=== PATIENT | female | born 1970 | race Caucasian/White ===

== ENCOUNTER 2021-12-25 13:05 | Outpatient (CLI) | payer BC, SELFPAY ==
--- NOTE | ~2021-12-25 | US_ITS ---
EXAMINATION: US venous doppler [facility] DATE: 12/25/2021 14:41 INDICATION: Factor V deficiency. M 79.89-other specified soft tissue disorders. TECHNIQUE: Grayscale images without and with compression and Doppler images of the bilateral lower ex tremity veins were obtained. COMPARISON: None. FINDINGS: The right common femoral vein, profunda (deep) femoral vein, femoral vein, popliteal vein, peroneal v ein, posterior tibial veins, gastrocnemius vein and greater saphenous vein are patent. The left common femoral vein, profunda (deep) femoral vein, femoral vein, popliteal vein, peroneal ve in, posterior tibial veins, gastrocnemius vein and greater saphenous vein are patent. IMPRESSION: 1. Patent bilateral lower extremity veins. No evidence of deep venous thrombosis. Reviewed, dictated and finalized at location K. IMPRESSION: 1. Patent bilateral lower extremity veins. No evidence of deep venous thrombos is.
== END 2021-12-25 13:06 | disposition home or self-care (01) ==
LOC: ANHIMG 13:06
PROVIDERS: PCP Family Medicine; Visit Provider Family Medicine
DX: M79.89 Other specified soft tissue disorders (principal)
CPT/HCPCS: 93970

== ENCOUNTER 2023-03-31 13:42 | Emergency (ER) | payer BC, SELFPAY ==
--- NOTE | ~2023-03-31 | CT_ITS ---
EXAMINATION: CT brain wo con DATE: 03/31/2023 15:31 INDICATION: left sided numbness . TECHNIQUE: Computed tomography (CT) of the head was performed without intravenous contrast. The mA wa s adjusted according to patient size. Iterative reconstruction technique was employed. The dose-lengt h product was 605.33 mGy-cm. COMPARISON: None. FINDINGS: No acute intracranial hemorrhage or extra-axial fluid collection. No hydrocephalus, mass, or herniation. No acute ischemic infarct. Unremarkable dural venous sinus attenuation. No acute osseous abnormality. The aerated spaces are clear. Mild intracranial atherosclerotic calcifications. IMPRESSION: No acute intracranial process. Reviewed, dictated and finalized at location K.
--- NOTE | ~2023-03-31 | XR_ITS ---
EXAMINATION: XR chest 2V Exam Date/Time: 03/31/2023 15:20 CDT HISTORY: SUDDEN left sided numbness FROM NECK TO LEFT FOOT Comparison: None. RESULT: Lines, tubes, and devices: None. Lungs and pleura: Clear. Cardiomediastinal silhouette: Unremarkable. Other: No acute osseous or upper abdominal finding. IMPRESSION: No acute cardiopulmonary process. Reviewed, dictated and finalized at location K.
[2023-03-31 13:44] VITALS: BP 152/88; PULSE 85; RESP 18; TEMP 36.4; O2SAT 99
--- NOTE | 2023-03-31 14:47 | PC.NURSE ---
Dr. Vincent at bedside to assess pt.
--- NOTE | 2023-03-31 14:56 | ECG_ITS ---
Measurements Intervals [place] Rate: 63 P: -38 ID: [id number] QRS: 56 QRSD: 81 T: 45 QT: 403 QTc: 413 Interpretive Statements SINUS RHYTHM NORMAL ELECTROCARDIOGRAM NO PREVIOUS ECG AVAILABLE FOR COMPARISON Electronically Signed On 03-31-2023 17:19:42 CDT by Jose Luis Sotelo M.D.
[2023-03-31 15:31] LABS: Basophils Percent Auto 0.3 % (0.2-1.2); Eosinophils Absolute Auto 0.1 K/mm3 (0-0.3); Eosinophils Percent Auto 1.2 % (0-4.4); Hematocrit 46.9 % (37.0-47.0); Hemoglobin 15.5 g/dL (12.0-15.0); Immature Granulocyte Absolute 0.04 K/mm3 (0.00-0.031); Immature Granulocyte Percent A 0.4 % (0-0.5); Lymphocytes Absolute Auto 3.07 K/mm3 (0.9-3.2); Lymphocytes Percent Auto 29.6 % (18.3-44.2); Mean Corpuscular Hemoglobin 33.5 pg (26-34); Mean Corpuscular Volume 101.3 fl (80-100); Mean Platelet Volume 9.5 fl (7.4-10.4); Monocytes Absolute Auto 0.6 K/mm3 (0.1-0.6); Monocytes Percent Auto 6.2 % (2.6-8.5); Neutrophils Absolute Auto 6.5 K/mm3 (1.3-6.7); Neutrophils Percent Auto 62.3 % (45.5-73.1); Platelet Count Result 298 k/mm3 (150-375); Red Blood Count 4.63 M/mm3 (4.2-5.4); Red Cell Distribution Width 12.1 % (11.5-14.5); White Blood Count 10.4 K/mm3 (4.5-10.0)
--- NOTE | 2023-03-31 16:39 | ED.NEUROSD ---
HPI - Neuro Symptoms/Deficit General Chief Complaint: Neuro Symptoms/Deficit Stated Complaint: left sided body numbness Time Seen by Provider: 03/31/23 14:25 History of Present Illness HPI Narrative: Patient is a 53-year-old female who presents ER with concerns for left-sided numbness. Began this morning at 930. It began in her left mouth/left arm/left leg. She feels it in her left upper chest. No focal weakness. She reports she was unable to recall her dog's name for a temporary amount of time. Though her memory is currently intact her numbness and heavy feeling still present. She reports history of factor V Leiden and having a blood clot in the past. She is currently not on any anticoagulation. No chest pain or chest pressure. No dizziness. No alleviating factors. Related Data Allergies Allergy/AdvReac Type Severity Reaction Status Date / Time butorphanol Allergy Severe TONGUE Verified 03/31/23 14:02 SWELLS,INVOLUNTARY MOVEMENTS Review of Systems Review of Systems: All systems reviewed & are unremarkable except as noted in HPI and below Constitutional: Constitutional: Denies chills, Denies fatigue and Denies fever(s) ENT: Denies nasal congestion and Denies sore throat Cardiovascular: Cardiovascular: Denies chest pain, Denies rapid heart rate and Denies radiating jaw, neck or arm pain Gastrointestinal: Gastrointestinal: Denies abdominal pain, Denies nausea and Denies vomiting Neurologic: Reports confusion, Denies syncope, Denies headache(s), Denies focal weakness and Reports numbness PMFSH Past Medical History Medical History (Updated 03/31/23 @ 20:39 by Alec Vincent MD) Essential (primary) hypertension Mixed hyperlipidemia Family History Family History Grandparent Family history of mental disorder Family history of cardiovascular disease Father Family history of elevated blood lipids Family history of cardiovascular disease, Onset Age: 50 Acute myocardial infarction, Onset Age: 50 Colon polyp, Onset Age: 60 Family history of coronary artery disease, Onset Age: 50 Malignant neoplasm of prostate Sibling Family history of malignant neoplasm of breast in first degree relative Social History Social History Second hand tobacco smoke exposure: No Alcohol intake: current Substance use: never Substance use type: does not use Exam Narrative: GENERAL: Well-appearing, well-nourished, and in no acute distress. HEAD: Normocephalic, atraumatic. ENT: Mucous membranes moist. NECK: Supple. CHEST: Clear to auscultation. No respiratory distress. HEART: Regular rate and rhythm. Normal peripheral pulses. ABDOMEN: Soft, nontender, nondistended. EXTREMITIES: Normal range of motion. No edema. SKIN: Warm, dry, no rash. NEURO: No upper or lower extremity drift. Cranial nerves II through XII intact. No expressive aphasia or dysarthria. Negative Romberg. Sharp touch intact though patient feels sensation of numbness and heaviness on the left side. Alert and oriented x3. PSYCH: Normal mood and affect. Course Course Emergency Course: Patient reports symptoms have nearly fully resolved and are only located in her left thumb. I encouraged patient to stay in the hospital for an MRI as well as an echocardiogram especially given her history of factor V Leiden mutation. Discussed case with neurology who also recommends this. I have strongly counseled the patient and her that she should stay but patient chooses to leave AGAINST MEDICAL ADVICE knowing that she could risk or permanent disability due to stroke or other diagnosis. Vital Signs Vital signs: Vital Signs Temperature 97.6 F 03/31/23 13:44 Pulse Rate 85 03/31/23 13:44 Respiratory Rate 18 03/31/23 13:44 Blood Pressure 152/88 H 03/31/23 13:44 Pulse Oximetry 99 03/31/23 13:44 Oxygen Delive
[2023-03-31 17:05] LABS: Alanine Aminotransferase 27 U/L (6-35); Albumin Level 4.5 g/dL (3.5-5.1); Alkaline Phosphatase 64 U/L (38-126); Anion Gap 7 mmol/L (8-16); Aspartate Amino Transferase 27 U/L (14-36); Bilirubin,Total 0.4 mg/dL (0.2-1.3); Blood Urea Nitrogen 10 mg/dL (7-17); Calcium 9.8 mg/dL (8.4-10.2); Carbon Dioxide 25 mmol/L (22-30); Chloride 104 mmol/L (98-107); Estimated CRCL calculation 110 ml/min; Estimated Glomerular Filt Rate > 60; Glucose 100 mg/dL (65-110); Sodium 136 mmol/L (137-145)
[2023-03-31 17:09] LABS: INR 0.9; Prothrombin Time 12.3 Seconds (11.1-14.7)
[2023-03-31 17:10] LABS: Partial Thromboplastin Time 20.8 SECONDS (22.3-36.8)
[2023-03-31 18:14] VITALS: BP 145/91; PULSE 64; RESP 18; TEMP 36.4; O2SAT 98
== END 2023-03-31 17:13 | disposition left against medical advice (07) ==
LOC: ANHED 15:02
PROVIDERS: Emergency Provider Emergency Medicine
DX: R20.0 Anesthesia of skin (principal); R41.3 Other amnesia; D68.51 Activated protein C resistance; I10 Essential (primary) hypertension; E78.2 Mixed hyperlipidemia; Z79.01 Long term (current) use of anticoagulants
CPT/HCPCS: 36415; 70450; 71046; 80053; 85025; 85610; 85730; 93005; 99284

== ENCOUNTER 2024-12-09 13:49 | Outpatient (CLI) | payer BC, SELFPAY ==
--- NOTE | ~2024-12-09 | US_ITS ---
EXAMINATION: US arterial ankle brachial ind DATE: 12/09/2024 14:31 INDICATION: Other specified soft tissue disorders. Bilateral foot tingling and rash at the left calf. TECHNIQUE: Segmental pressures and plethysmographic and Doppler waveforms of the brachial and lower e xtremity arteries were obtained. COMPARISON: None. FINDINGS: Right and left brachial artery pressures of 138 mm Hg and 142 mm Hg, respectively, are concordant (no rmal difference <= 30 mmHg). The right ankle-brachial index (JOSÉ MIGUEL) is 1.08 (normal >= 0.9-1.0). The right great toe-brachial index (TBI) is 0.49 (normal >= 0.65). Arterial Doppler waveforms demonstrated brisk systolic upstrokes at b oth right posterior tibial and dorsalis pedis arteries. The left JOSÉ MIGUEL is 1.06. The left TBI is 0.50. Arterial Doppler waveforms demonstrate brisk systolic ups trokes at both left posterior tibial and dorsalis pedis arteries. IMPRESSION: 1. Mild arterial occlusive disease to bilateral lower limbs with normal bilateral ABIs but mildly dec reased bilateral TBI's. Reviewed, dictated and finalized at location A. IMPRESSION: 1. Mild arterial occlusive disease to bilateral lower limbs with normal bilater al ABIs but mildly decreased bilateral TBI's.
--- OUTSIDE RECORDS SUMMARY | 2024-12-09 14:55 | XMS_ITS | Continuity of Care Document ---
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 OPTION 3 AFTER CALL BACK FOR REFERRAL CENTER. CHECK YOUR LAB RESULTS ON PATIENT PORTAL. PROCEDURES/TREATMENT TODAY: COUNSELINGPLAN for next office visit: Medication(s) and medical condition(s) reevaluation.FOLLOW UP appt with PCP in 1 MONTH or sooner as directed and depending on availability.FOLLOW UP appt with NEUROLOGY, PAIN MANAGEMENT AND PUBLIC SERVICE REPRESENTATIVE specialist(s) as directed. Patient to go to the nearest ER and/or call 911 if symptoms worsen. Med(s) and potential side effects discussed with patient. Risks of noncompliance with meds and treatment plan to include but not be limited to and disability. Patient verbalized understanding and agrees with plan. Related to Chronic migraine Giving encouragement to exercise Related to Body mass index (BMI) 25.0-25.9, adult Dietary management e ducation, guidance, and counseling Related to Body mass index (BMI) 25.0-25.9, adult -Neurology referral approved-Information provided to patient to call and schedule an appointment-F/u as directed Related to Chronic migraine -Continue diazepam 5 mg one tablet twice daily as needed for anxiety, depression, and panic -Do not drink alcohol or drive while taking this medication.-Take as prescribed-Information provided on local psychiatric clinic-Advised the patient to f/u with such to be evaluated by psychiatry Related to Depression with anxiety -Continue and increa se gabapentin 300mg one tablet in the morning and evening and three tablets at bedtime-Continue norco 10mg one tablet every 12hours as needed for breakthrough pain with food-Do not drink alcohol or drive while taking this medication-Take as prescribed-MRI of knee: chondromalacia, no acute injuries. -F/u at scheduled pain mgmt appointment -The risks, benefits and side effects of treatment were discussed with the patient-The patient verbalized an understanding of the plan and made an informed decision. Related to Chronic pain of both lower extremities Giving encouragement to exercise Related to Body mass index (BMI) 25.0-25.9, adult Lifestyle education regarding di et Related to Body mass index (BMI) 25.0-25.9, adult CS TS- recheck 2wks, resume all ADL'S Related to Subluxation complex of cervical region CS TS- recheck 2wks, resume alll ADL'S Related to Subluxation complex of cervical region -Start chantix 1mg t wice daily-Take as prescribed Related to Tobacco use -Refilled and contin ue norco 10mg one tablet every 12 hours as needed for breakthrough pain-Do not drink alcohol or drive after taking this medication-Pain mgmt referral is pending-Refilled and continue gabapentin 300mg one tablet three times daily as needed for pain-Take both as prescribed Related to Chronic neck pain -Refilled and contin ue diazepam 5mg one tablet twice daily as needed for anxiety and panic attacks-Take as prescribed-Do not drink alcohol or drive after taking this medication Related to Depression with anxiety -Refilled and contin ue diazepam 5mg one tablet twice daily as needed for anxiety and panic attacks-Take as prescribed-Do not drink alcohol or drive after taking this medication Related to Panic attack -Refilled and contin ue butalbital 1-2 tablets every 4 hours as needed for migraines- continue other meds prescribed by neurologist: promethazine, phenobarbital-Take as prescribed Related to Chronic migraine -Refilled and contin ue norco 10mg one tablet every 12 hours as needed for breakthrough pain-Do not drink alcohol or drive after taking this medication-Pain mgmt referral is pending-Refilled and continue gabapentin 300mg one tablet three times daily as needed for pain-Take both as prescribed-F/u in one month for reevaluation The risks, benefits and side effects of treatment were discussed with the patient. The patient verbalized an understanding of the plan and made an informed decision. Related to Chronic pain of both lower extremities -Restart trazodone 5 0mg 1-2 tablets nightly as needed for insomnia-take as prescribed Related to Other insomnia CS TS stim- recheck 2wks, resume all ADL'S Related to Subluxation complex of thoracic region CS TS- recheck 2wks, resume all ADL'S Related to Subluxation complex of thoracic region Impression/Plan - Rx for contact lenses dispensed to patient (+0.50 sph OR OD only from current CLs). Patient educated on proper contact lens care (including no sleeping in contact lenses). Patient educated to discontinue contact lens wear with any ocular discomfort. Patient educated to RTC COTY with any severe ocular redness/pain, otherwise, RTC annually (due for annual eye exam in ~6 months). TS LS- recheck 2wks, resume all ADL'S Related to Subluxation complex of thoracic region MRI of left knee ordered Related to Chronic pain of left knee - continue fioricet 2-3 times daily as needed for migraine, #60 tablets prescribed- referral to neurology approved, patient has appointment later this month- follow up as needed- advised patient to bring records from previous provider to appointment. Related to Chronic migraine as above Related to Chron ic pain of right knee as above Related to Other chronic pain - refilled and ad nue diazepam twice daily- continue fluoxetine- follow up with psychiatry once referral is approved. Related to Panic attack - continue fluoxetin e as prescribed- refilled diazepam after going over regiment with patient today, #60 tablets prescribed to take every 12 hours as needed for panic attacks- referral to psychiatry submitted, still pending - follow up in 30 days if unable to follow up with psychiatrist Related to Depression with anxiety - Flint 10-325mg PO Q12H prn breakthrough pain, #60 tablets prescribed for 30 days- Continue Gabapentin 300mg PO three times daily- MRI of the left knee ordered urgently today to evaluate for ligament damage - referral to pain management approved, advised patient to schedule appointment within the month - advised patient to take new medications as prescribed- patient understood and made informed decision- Discussed risk/benefits/side effects of treatment Related to Chronic pain of both lower extremities Discussed vasomotor s/sx of pre-menopausept to anika f/u appt after mammo and pap resultsencouraged daily MVT, vit D and Ca suplements. Related to Women's annual routine gynecological examination CS TS- recheck 2wks, resume all ALL ADL'S Related to Thoracic spine pain Take medications as prescribed. Related to Pain in left leg Continue diazepam 5 mg 2x per daySTART duloexetine 60 mg 2x per dayReferral placed to psychiatry Related to Depression with anxiety Take medications as prescribed. Related to Other chronic pain START Gabapentin 300 mg 3x per daySTART Flint 10 mg- 325 mg 1 pill every 8 hours as neeeded for pain. Urgent referral placed to Pain Management. Please note referrals are time sensitive so schedule appt as soon as contacted. If not contacted in the next 3 days, please call Referrals Dept to check status: Ext. [phone].The risks, benefits, and side effects of treatment were discussed with the patient. The patient verbalized an understanding of the plan and made an informed decision. Related to Chronic pain of both lower extremities Hypomobile C7-R MDP/ prone knife-edge; C4-R supine; C3-L supine. Vibration to tolerance. Towel traction 20 reps to decompress cervical spine. Prossage to cervical paraspinals.FU in 2 weeks.Continue ADLs.Start heat 15 minutes on as instructed.Start cervical retraction exercises 10 reps hold 10 seconds daily.Start cervical extension with towel 10 reps daily.Patient responded well to treatment today and felt better . Related to Cervical spine pain Assessments Type Assessment Date No Information Patient Care Teams Name Effective Dates (start - stop) Status Members No Information
--- OUTSIDE RECORDS SUMMARY | 2024-12-09 14:55 | XMS_ITS | Clinical Summary ---
Author Organization [facility] [employer] Address [address] [place] [address] Care Team Providers Care Crane Helper Name Role Phone Unavailable Primary Care Provider Unavailabl e Source Comments [facility] [employer],non-owned Affiliates and Associated Physician Practices is amultiple site organization consisting of ambulatory clinics and hospital sitesin [place], [place], [place] and [place]. This disclosure is being madepursuant to the Care Everywhere program and may not contain all information available regarding this patient. Last updated 18.[facility] [employer] Social History Tobacco Use Types Packs/Day Years Used Date Smoking Tobacco: Never Assessed Comments Unknown Sex and Gender Information Value Date Recorded Sex Assigned at Not on file Legal Sex Female 6:47 PM CDT Gender Identity Not on file Sexual Orientation Not on file Plan of Treatment Health Maintenance Due Date Last Done Comments COLOGUARD (AGES 45-75) - COL ON CA SCREENING 1968 COLON MONITORING 1968 COLONOSCOPY - COLON CA SCREENING 1968 CT COLONOGRAPHY - COLON CA SCREENING 1968 Colorectal Cancer Screening 1968 FIT - COLON CA SCREENING 1968 FLEX SIG - COLON CA SCREENING 1968 LIPID TESTING 1968 MAMMOGRAM 1968 PAP SMEAR 1968 HIV SCREENING 02/22/1983 HEPATITIS C SCREENING 02/18/1986 DTAP/TDAP/TD VACCINES (1 - Tdap) 02/22/1987 HEPATITIS B VACCINE (1 of 3 - 19+ 3-dose series) 02/22/1987 PNEUMOCOCCAL VACCINE 50+ (1 of 1 - PCV) 02/22/2018 ZOSTER VACCINE (1 of 2) 02/22/2018 COVID-19 VACCINE ( - 2023-2 5 season) 2024 DEPRESSION SCREENING 08/18/2024 INFLUENZA VACCINE (Season Ended) 2025 HIB VACCINE Aged Out No longer eligi ble based on patient's age to complete this topic HPV VACCINE Aged Out No longer eligi ble based on patient's age to complete this topic MENINGOCOCCAL (Group B) VACC INE SHARED DECISION-MAKING Aged Out No longer eligibl e based on patient's age to complete this topic MENINGOCOCCAL GROUPS A/C/Y/W VACCINE Aged Out No longer eligible b ased on patient's age to complete this topic Insurance
--- OUTSIDE RECORDS SUMMARY | 2024-12-09 14:55 | XMS_ITS | Encounter Summary ---
Author Organization [facility] Address [address] [place] [address] Care Team Providers Care Food Crops Farm Hand Name Role Phone Unavailable Primary Care Provider Unavailabl e Encounter Details Date Type Department Care Team (Late st Contact Info) Description 07/05/2023 Lab Requisition [facility] - DermPath Lab [address] [place] [id number] Arian Blank MD [address] [place] [address] Social History Tobacco Use Types Packs/Day Years Used Date Smoking Tobacco: Never Assessed Comments Unknown Sex and Gender Information Value Date Recorded Sex Assigned at Not on file Legal Sex Female 6:47 PM CDT Gender Identity Not on file Sexual Orientation Not on file documented as of this encounter Plan of Treatment Not on file documented as of this encounter Procedures Procedure Name Priority Date/Time Associated Diagnosis Comments DERMATOPATHOLOGY Routine 07/04/2023 12:0 0 AM WOOD PATTERN MAKER documented in this encounter Results * DERMATOPATHOLOGY (07/04/2023 12:00 AM WOOD PATTERN MAKER) Case Report Dermatopathology Report Case: [id number] Authorizing Provider: Arian Blank MD Collected: 07/04/2023 12:00 AM Ordering Location: [facility] DermPath Lab Received: 07/05/2023 08:23 AM Pathologist: Geeta Serrato MD Specimen: Skin, right upper chest 12:38 PM WOOD PATTERN MAKER DERMATOPATHOLOGY LABORATORY Final Diagnosis Specimen A. SKIN, right upper chest: BASAL CELL CARCINOMA, SUPERFICIAL MULTIFOCAL (C44.519) 3 12:38 PM WOOD PATTERN MAKER DERMATOPATHOLOGY LABORATORY Clinical History AK vs. BCC vs. Dermatitis. Path# [id number] 12:38 PM [facility] DERMATOPATHOLOGY [facility]ORATORY Gross Description Specimen A: Received is one formalin filled container labeled with the patient's name and designated right upper chest. The specimen consists of a shave biopsy measuring 3x3x1 mm. Jar 0. 12:38 PM [facility] DERMATOPATHOLOGY LABORATORY Microscopic Description Specimen A. SKIN, right upper chest: Attached to the undersurface of the epidermis, there are small aggregates of basaloid cells with a high nuclear to cytoplasmic ratio and peripheral palisading. 12:38 PM [facility] DERMATOPATHOLOGY LABORATORY Disclaimer An external and internal positive and negative controls are appropriate for the histochemical, immunohistochemical and immunofluorescence stain(s) in this case (if any), except where stated explicitly. The performance characteristics of the stain(s) cited in this report were developed and its performance characteristic determined by the Dermatopathology Laboratory at [facility], directed by Dr. Laura Olson. These tests need not be, and therefore are not, approved by the [place] Food and Drug Administration. The tests are used for clinical purposes. Billing Codes Specimen Charges Stain Charges 98811 1 3 12:38 PM [facility] DERMATOPATHOLOGY LABORATORY Embedded Images 12:38 PM [facility] DERMATOPATHOLOGY LABORATORY Pathology/Cytolog y TISSUE SPECIMEN FROM SKIN / Unknown 07/04/2023 07/05/2023 8:23 AM WOOD PATTERN MAKER us Arian Blank MD LAB - PATHOLOGY/CYTOLOGY ORDER MAGAN Final Result DERMATOPATHOLOGY LABORATORY [facility] - Department of Dermatology [address] [place] [address], [facility] [phone] documented in this encounter Visit Diagnoses Not on filedocumented in this encounter
--- OUTSIDE RECORDS SUMMARY | 2024-12-09 14:55 | XMS_ITS | Clinical Summary ---
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 0 2015 Heterozygous factor V Leiden mutation 2015 Family History Medical History Relation Name Comments Heart disease Father Family history of cardiac disorder - (Added by TW Conv) Rheum arthritis Mother Family histo ry of rheumatoid arthritis - (Added by TW Conv) Relation Name Status Comments Father Mother Social History Tobacco Use Types Packs/Day Years Used Date Smoking Tobacco: Every Day Comments Unknown Sex and Gender Information Value Date Recorded Sex Assigned at Not on file Legal Sex Female 1:55 AM TELEPHONE STERILIZER Gender Identity Not on file Sexual Orientation Not on file Obstetrics History Last Filed Vital Signs Vital Sign Reading Time Taken Comments Blood Pressure 135/90 2015 8:49 AM CDT Pulse 84 2015 8:49 AM CDT Temperature - - Respiratory Rate - - Oxygen Saturation - - Inhaled Oxygen Concentration - - Weight 100.7 kg (222 lb 0.1 oz) 2015 8:49 AM CDT Height 165.1 cm (5' 5 ) 2015 8:49 AM CDT Body Mass Index 36.94 2015 8:49 AM CDT Plan of Treatment Health Maintenance Due Date Last Done Comments Cervical Cancer Screening 1968 Colon Cancer Screening-Colonoscopy 1968 Depression Screening 1968 Hepatitis C Screening 1968 DTaP/Tdap/Td Vaccine (1 - Tdap) 02/22/1979 Hepatitis B Screening 02/22/1986 Regular Well Visit/Exam 18-64 02/22/1986 Pneumococcal vaccine <65 (1 of 2 - PCV) 02/22/1987 Zoster Vaccine (1 of 2) 02/22/2018 Covid-19 Vaccine (3 - 2023-2 5 season) 2024 11/21/2020, 10/19/2020 Influenza Vaccine (#1) 2024 Breast Cancer Screening-Mammogram 08/16/2025 08/16/2024, 08/12/2023, 07/18/2022, Additional history exists Procedures Procedure Name Priority Date/Time Associated Diagnosis Comments SCREENING MAMMOGRAM BILATERAL W ARSENIO Schedule Routine, Read Routine (OP Routine) 08/16/2024 8:27 AM TELEPHONE STERILIZER Screening mammogram, encounter for from Last 3 Months or Most Recently Relevant to Health Maintenance Results * Screening Mammogram Bilateral W Arsenio (08/16/2024 8:27 AM TELEPHONE STERILIZER) Anatomical Region Laterality Modality Breast Bilateral Mammography Narrative 08/16/2024 2:51 PM TELEPHONE STERILIZER Mammogram Technique: Bilateral Digital Breast Tomosynthesis, Bilateral C-view 2D Screening mammogram. Views obtained: bilateral craniocaudal and bilateral mediolateral oblique. Computer Aided Detection was performed. Mammogram Findings: The present examination has been compared to prior imaging studies performed at [facility] on 05/15/2021, 07/18/2022 and 08/12/2023. There are scattered areas of fibroglandular density. There is no suspicious abnormality in either breast. Impression: There is no mammographic evidence of malignancy. Annual screening mammography is recommended. OVERALL FINAL ASSESSMENT: BI-RADS CATEGORY 1: Negative. Procedure Note Natasha Pearson MD - 08/16/2024 Mammogram Technique: Bilateral Digital Breast Tomosynthesis, Bilateral C-view 2D Screening mammogram. Views obtained: bilateral craniocaudal and bilateral mediolateral oblique. Computer Aided Detection was performed. Mammogram Findings: The present examination has been compared to prior imaging studies performed at [facility] on 05/15/2021, 07/18/2022 and 08/12/2023. There are scattered areas of fibroglandular density. There is no suspicious abnormality in either breast. Impression: There is no mammographic evidence of malignancy. Annual screening mammography is recommended. OVERALL FINAL ASSESSMENT: BI-RADS CATEGORY 1: Negative. us Self Screening Mammogram IMG MAMMO PROCEDURES Fi nal Result from Last 3 Months or Most Recently Relevant to Health Maintenance Insurance [employer] OOS BLUE [employer] CHOICE OOS BLUE ACC CHOICE OOS Care Teams Lard Mixer Relationship Specialty Start Date End Date Maggie Klein MD [address] [facility] [address] [place] [id number] PCP - General Gynecology 06/23/24
--- OUTSIDE RECORDS SUMMARY | 2024-12-09 14:55 | XMS_ITS | Referral Summary ---
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 2015 Heterozygous factor V Leiden mutation 2015 Social History Tobacco Use Types Packs/Day Years Used Date Smoking Tobacco: Every Day Comments Unknown Sex and Gender Information Value Date Recorded Sex Assigned at Not on file Legal Sex Female 1:55 AM INDUSTRIAL CAFETERIA MANAGER Gender Identity Not on file Sexual Orientation Not on file Last Filed Vital Signs Vital Sign Reading [...] 2015 8:49 AM CDT Plan of Treatment Not on file Procedures Procedure Name Priority Date/Time Associated Diagnosis Comments SCREENING MAMMOGRAM BILATERAL W ARSENIO Schedule Routine, Read Routine (OP Routine) 08/16/2024 8:27 AM INDUSTRIAL CAFETERIA MANAGER Screening mammogram, encounter for from Last 3 Months or Most Recently Relevant to Health Maintenance Results * Screening Mammogram Bilateral W Arsenio (08/16/2024 8:27 AM INDUSTRIAL CAFETERIA MANAGER) Anatomical Region Laterality Modality Breast Bilateral Mammography Narrative 08/16/2024 2:51 PM INDUSTRIAL CAFETERIA MANAGER Mammogram Technique: Bilateral Digital Breast Tomosynthesis, Bilateral C-view 2D Screening mammogram. Views obtained: bilateral craniocaudal and bilateral mediolateral oblique. Computer Aided Detection was performed. Mammogram Findings: The present examination has been compared to prior imaging studies performed at [facility] on 05/15/2021, 07/18/2022 and 08/12/2023. There are [...] compared to prior imaging studies performed at [facility] on 05/15/2021, 07/18/2022 and 08/12/2023. There are scattered areas of fibroglandular density. There is no suspicious abnormality in either breast. Impression: There is no mammographic evidence of malignancy. Annual screening mammography is recommended. OVERALL FINAL ASSESSMENT: BI-RADS CATEGORY 1: Negative. us Self Screening Mammogram IMG MAMMO PROCEDURES Fi nal Result from Last 3 Months or Most Recently Relevant to Health Maintenance Insurance [employer] OOS Vetr CHOICE OOS Vetr CHOICE OOS Care Teams Planning Feeder Relationship Specialty Start Date End Date Maggie Klein MD [address] [address] PCP - General Gynecology 06/23/24
== END 2024-12-09 13:50 | disposition home or self-care (01) ==
PROVIDERS: PCP Nurse Practitioner Family; Visit Provider Nurse Practitioner Family
DX: M79.89 Other specified soft tissue disorders (principal)
CPT/HCPCS: 93922

== ENCOUNTER 2024-12-30 12:32 | Outpatient (CLI) | payer BC, SELFPAY ==
--- OUTSIDE RECORDS SUMMARY | 2024-12-30 12:37 | XMS_ITS | Encounter Summary ---
Author Organization [facility] Address [address] [place] [address] Care Team Providers Care Marketing Trainee Name Role Phone Unavailable Primary Care Provider Unavailabl e Encounter Details Date Type Department Care Team (Late st Contact Info) Description 07/05/[address] [facility] - DermPath Lab [address] [place] [id number] Arian Blank MD [address] [place] [address] Social History Tobacco Use Types [...] Comments DERMATOPATHOLOGY Routine 07/04/2023 12:0 0 AM ADJUNCT MATHEMATICS INSTRUCTOR documented in this encounter Results * DERMATOPATHOLOGY (07/04/2023 12:00 AM ADJUNCT MATHEMATICS INSTRUCTOR) Case Report Dermatopathology Report Case: [id number] Authorizing Provider: Arian Blank MD Collected: 07/04/2023 12:00 AM Ordering Location: [facility] DermPath Lab Received: 07/05/2023 08:23 AM Pathologist: Geeta Serrato MD Specimen: Skin, right upper chest 12:38 PM ADJUNCT MATHEMATICS INSTRUCTOR DERMATOPATHOLOGY LABORATORY Final Diagnosis Specimen A. SKIN, right upper chest: BASAL CELL CARCINOMA, SUPERFICIAL MULTIFOCAL (C44.519) 3 12:38 PM ADJUNCT MATHEMATICS INSTRUCTOR DERMATOPATHOLOGY LABORATORY Clinical History AK vs. BCC vs. Dermatitis. Path# [id number] 12:38 PM [facility] DERMATOPATHOLOGY LABORATORY Gross Description Specimen A: Received is one formalin filled container labeled with the patient's name and designated right upper chest. The specimen consists of a shave biopsy measuring 3x3x1 mm. Jar 0. 12:38 PM [facility] DERMATOPATHOLOGY LABORATORY Microscopic Description Specimen A. SKIN, right upper chest: Attached to the undersurface of the epidermis, there are small aggregates of basaloid cells with a high nuclear to cytoplasmic ratio and peripheral palisading. 12:38 PM [facility] DERMATOPATHOLOGY LABORATORY Disclaimer An external and internal positive and negative controls are appropriate for the histochemical, immunohistochemical and immunofluorescence stain(s) in this case (if any), except where stated explicitly. The performance characteristics of the stain(s) cited in this report were developed and its performance characteristic determined by the Dermatopathology Laboratory at [facility], directed by Dr. Laura Olson. These tests need not be, and therefore are not, approved by the [place] Food and Drug Administration. The tests are used for clinical purposes. Billing Codes Specimen Charges Stain Charges 17139 1 3 12:38 PM [facility] DERMATOPATHOLOGY LABORATORY Embedded Images 12:38 PM [facility] DERMATOPATHOLOGY LABORATORY Pathology/Cytolog y TISSUE SPECIMEN FROM SKIN / Unknown 07/04/2023 07/05/2023 8:23 AM ADJUNCT MATHEMATICS INSTRUCTOR us Arian Blank MD LAB - PATHOLOGY/CYTOLOGY ORDER MAGAN Final Result DERMATOPATHOLOGY LABORATORY [facility] - Department of Dermatology [address] [place] [address], [facility] [phone] documented in this encounter Visit Diagnoses Not on filedocumented in this encounter
--- OUTSIDE RECORDS SUMMARY | 2024-12-30 12:37 | XMS_ITS | Clinical Summary ---
Author Organization [facility] Address [address] [place] [address] Care Team Providers Care Boiler Cleaner Name Role Phone Unavailable Primary Care Provider Unavailabl e Source Comments [facility],non-owned Affiliates and Associated Physician Practices is amultiple site organization consisting of ambulatory clinics and hospital sitesin [place], [place], [place] and [place]. This disclosure is being madepursuant to the Care Everywhere program and may not contain all information available regarding this patient. Last updated 18.[facility] Social History Tobacco Use Types Packs/Day Years [...]
--- OUTSIDE RECORDS SUMMARY | 2024-12-30 12:37 | XMS_ITS | Continuity of Care Document ---
Author Organization [employer] [facility] ic Address [address] [place] [address] Phone Care Team Providers Care Gas Brazer Name Role Phone Garduno DO, Jesu Unavailable Unavailable Allergies, Adverse Reactions, Alerts Substance Reaction Status Criticality BUPROPION HCL Zeisure Active No Information Medications Medication Instructions Dosage Effective Dates (start - stop) Status Comments duloxetine 60 mg capsule,delayed release take 2 capsule by oral route every day 120 MG - Active Refilled per [facility] grid. JL trazodone 50 mg tablet take 1 to 2 tablets by oral route every day at bedtime - Active Refilled per [facility] grid JL Chantix 1 mg tablet take [...] for anxiety/panic attack 5 MG - Active London 10 mg-325 mg tablet take 1 tablet [...] MG - No Longer Active Refilled per [facility] grid. RM Procedures Procedure Date CHIROPRACTIC MANIPULATION 1-[facility] CHIROPRACTIC MANIPULATION 1-2 [facility] ESTABLISHED OFFICE/OUTPATIENT VISIT ESTABLISHED OFFICE/OUTPATIENT VISIT CHIROPRACTIC MANIPULATION 1-2 [facility] CHIROPRACTIC MANIPULATION 1-2 [facility] Eval ESTABLISHED OFFICE/OUTPATIENT VISIT CHIROPRACTIC MANIPULATION 1-2 [facility] CHIROPRACTIC MANIPULATION 1-2 [facility] OPTOMETRY EYE EXAM ESTABLISHED [facility] CHIROPRACTIC MANIPULATION 1-2 [facility] ESTABLISHED OFFICE/OUTPATIENT VISIT ESTABLISHED OFFICE/OUTPATIENT VISIT ESTABLISHED OFFICE/OUTPATIENT VISIT CHIROPRACTIC MANIPULATION 1-2 [facility] Eval ESTABLISHED OFFICE/OUTPATIENT VISIT CHIROPRACTIC MANIPULATION 1-2 [facility] VOID ENCOUNTER Advance Directives Directive Yes / No Effective Date File Name No Information Encounters Encounter Description Practice Location Reason(s) For Visit Diagnoses Date Provider Providers Copied on Encounter [facility], [address] [place] [address], [id number], tel:[phone] [facility] No Information 8 Garduno DO Jesu. [address] [place] [address], [id number], [place]. tel:[phone] [facility], [address] [place] [address], [id number], tel:[phone] [facility] No Information 3201 8 Garduno DO Jesu. [address] [place] [address], [id number], [place]. tel:[phone] [facility], [address] [place] [address], [id number], tel:[phone] [facility] No Information 7-201 8 Garduno DO Jesu. [address], [place], [facility], . tel:[phone] [facility], [address] [place] [address], [address] [place] [address], tel:[phone] [facility] No Information Jan-0 8-201 8 Garduno DO Jesu. [address], [place], [facility], . tel:[phone] [facility], [address] [place] [address], [address] [place] [address], tel:[phone] [facility] No Information Jan-0 5-201 8 Garduno DO Ejsu. [address], [place], [facility], . tel:[phone] [facility], [address] [place] [address], [address] [place] [address], tel:[phone] [facility] cervical spine (chief complaint) Subluxation complex of cervical regionChronic neck pain December-2 1-201 8 Jose Ying. [address], [place], [facility]. tel:[phone] [facility], [address] [place] [address], [address] [place] [address], tel:[phone] [facility] No Information 5-201 8 Garduno DO Jesu. [address] [place] [address], [facility], . tel:[phone] [facility], [address] [place] [address], [address] [place] [address], tel:[phone] [facility] Chronic migraine December-1 0-201 8 Garduno DO Jesu. [address] [place] [address], [facility], . tel:[phone] [facility], [address] [place] [address], [id number], tel:[phone] [facility] Family Medicine cervical spine pain (chief complaint) Chronic neck painSubluxati on complex of cervical region December-1 0-201 8 Garcia DC Stepan. [address] [place] [address], [id number]. tel:[phone] ESTABLISHED OFFICE/OUTPA TIENT VISIT [facility], [address] [place] [address], [id number], [place] tel:[phone] [facility] Family Medicine Follow Up of Headaches (chief complaint) Body mass index (BMI) 25.0-25.9, adultChronic migraineDepre ssion with anxiety December-0 9-201 8 Pudol DO Christopher. [address] [place] [address], [id number], . tel:[phone] ESTABLISHED OFFICE/OUTPA TIENT VISIT [facility], [address] [place] [address], [id number], tel:[phone] [facility] Medicine Chronic pain (chief complaint) Chronic pain of both lower extremitiesBo dy mass index (BMI) 25.0-25.9, adultOverweig htChronic migraineDepre ssion with anxiety Nov-2 7-201 8 Garduno DO Jesu. [address] [place] [address], [id number], [place]. tel:[phone] [facility], [address] [place] [address], [id number], [place] tel:[phone] [facility] cervical spine (chief complaint) No Information Nov-2 6- 8 Garcia DC Stepan. [address] [place] [address], [id number]. tel:[phone] [facility], [address] [place] [address], [id number], [place] tel:[phone] [facility] Family Medicine cervical spine pain (chief complaint) Chronic neck pain Nov-1 2-201 8 Garcia DC Stepan. [address] [place] [address], [id number]. tel:[phone] [facility], [address] [place] [address], [id number], tel:[phone] [facility] No Information Nov-0 5-201 8 Garduno DO Jesu. [address] [place] [address], [facility], [place]. tel:[phone] [facility], [address] [place] [address], [id number], tel:[phone] [facility] Chronic pain of right knee Apr-0 4-201 8 Garduno DO Jesu. [address] [place] [address], [facility], [place]. tel:[phone] ESTABLISHED OFFICE/OUTPA TIENT VISIT [facility], [address] [place] [address], [address] [place] [address], tel:[phone] [facility] Pain mgmt (chief complaint)Ins omnia. (chief complaint)Anx iety and panic attacks (chief complaint) Chronic pain of both lower extremitiesDe pression with anxietyPanic attackOther insomniaChron ic migraineOther chronic painTobacco use Oct-3 0-201 8 Garduno DO Jesu. [address] [place] [address], [facility], [place]. tel:[phone] [facility], [address] [place] [address], [id number], tel:[phone] [facility] thoracic spine pain (chief complaint) Subluxation complex of thoracic regionThoraci c spine pain Oct-2 9- 8 Garcia CALEB Stepan. [address] [place] [address], [id number]. tel:[phone] [facility], [address] [place] [address], [id number], tel:[phone] [facility] thoracic spine (chief complaint) No Information Oct- 9- 8 Jose ELLIS Stepan. [address] [place] [address], [facility]. tel:[phone] [facility], [address] [place] [address], [id number], [place] tel:[phone] [facility] Optometry vision check (chief complaint) Hypermetropia , bilateralPres byopia Mar-0 9-201 8 Rich OD Jono. [address] [place] [address], [id number], [place]. tel:[phone] [facility], [address] [place] [address], [id number], [place] tel:[phone] [facility] Family Medicine thoracic spine (chief complaint) No Information 0 5-201 8 Jose Ying. [address] [place] [address], [facility]. tel:[phone] ESTABLISHED OFFICE/OUTPA TIENT VISIT [facility], [address] [place] [address], [id number], tel:[phone] [facility] Medicine LLE pain (chief complaint) Chronic pain of left knee Oct-0 2-201 8 Garduno DO Jesu. [address] [place] [address], [id number], [place]. tel:[phone] ESTABLISHED OFFICE/OUTPA TIENT VISIT [facility], [address] [place] [address], [id number], tel:[phone] [facility] Women Center Main annual exam (chief complaint) Women's annual routine gynecological examination Sep-2 4 8 No Information ESTABLISHED OFFICE/OUTPA TIENT VISIT [facility], [address] [place] [address], [id number], [place] tel:[phone] [facility] thoracic spine (chief complaint) No Information 2 0- 8 Garcia DC Stepan. [address] [place] [address], [facility]. tel:[phone] ESTABLISHED OFFICE/OUTPA TIENT VISIT [facility], [address] [place] [address], [id number], [place] tel:[phone] [facility] Medicine referral (chief complaint) No Information 8 Garduno DO Jesu. [address] [place] [address], [id number], [place]. tel:[phone] [facility], [address] [place] [address], [id number], [place] tel:[phone] [facility] Medicine cervical spine (chief complaint) Cervical spine pain 8 No Information [facility], [address] [place] [address], [id number], [place] tel:[phone] [facility] Medicine Musculoskelet al Pain (chief complaint) No [...] type Covered green party ID Authoriza tion(s) [employer] [facility] CI [id number] MediCal Differential Rate [id number] Social History Type Description Quantity Date Captured [...] < 2 Weeks ordered Referral Ordered: Referrals: Pain Management Appointment date/timeframe: High (URGENT-24 to 72 Anup ordered Referral Ordered: Referrals: Psychiatry Appointment date/timeframe: High (URGENT-24 to 72 Anup ordered Referral Ordered: Referrals: Neurology Appointment date/timeframe: High (URGENT-24 to 72 Anup ordered Future Order: Lab Order Image-Gu ided Pap with Age-Based Screening Protocols ([id number]), Appointment on: , Collected on: , Sent [...] 3 days ago. She has been prescribed London, diazepam and butalbital for headaches previously by [...] pending. Per the patient's previous PCP and paint stockman, Suboxone was recommended but the patient declined. [...] she is able to sleep 8 hours. London does not cause drowsiness and keeps her [...] a routine contact lens eye exam at [facility] ~6 months ago, and fit with monovision [...] she received treatment from a hospital in [place] 2-3 weeks ago and was given steroids with negative symptoms. Past surgical history: Lateral Release and Orthoscopic surgery 4x.Patient is upset because she is unable to see her previous provider (Dr. Donnell Hale in [place]) due to insurance change.She is currently prescribed [...] anxiety, depression, and anxiety attacks. Sx:Moved from [place] and has one child. cervical spine Ms [...] No Information Instructions Date Instruction Additional Infor basilio TS- recheck 2wks, resume all ADL'S Related [...] UP appt with NEUROLOGY, PAIN MANAGEMENT AND MANAGER DIGITAL specialist(s) as directed. Patient to go to [...] to Tobacco use -Refilled and contin ue diazepam 5mg one tablet twice daily as needed for anxiety and panic attacks-Take as prescribed-Do not drink alcohol or drive after taking this medication Related to Depression with anxiety -Refilled and contin ue norco 10mg one [...] psychiatrist Related to Depression with anxiety - London 10-325mg PO Q12H prn breakthrough pain, #60 [...] START Gabapentin 300 mg 3x per daySTART London 10 mg- 325 mg 1 pill every 8 hours as neeeded for pain. Urgent referral placed to Pain Management. Please note referrals are time sensitive so schedule appt as soon as contacted. If not contacted in the next 3 days, please call Referrals Dept to check status: Ext. [phone].The risks, benefits, and side effects of treatment [...]
--- OUTSIDE RECORDS SUMMARY | 2024-12-30 12:37 | XMS_ITS | Clinical Summary ---
Author Organization [place] [id number] [facility] Address [address] [place] [address] Care Team Providers Care Processor Inspector Name Role Phone Maggie Klein MD Primary Care Provider + Active Problems Problem Noted Date Diagnosed Date Deep vein thrombosis (DVT) 2015 half-way current use of anticoagulant therapy 0 2015 [...] on file Legal Sex Female 1:55 AM TRACK WALKER Gender Identity Not on file Sexual Orientation [...] Read Routine (OP Routine) 08/16/2024 8:27 AM TRACK WALKER Screening mammogram, encounter for from Last 3 Months or Most Recently Relevant to Health Maintenance Results * Screening Mammogram Bilateral W Arsenio (08/16/2024 8:27 AM TRACK WALKER) Anatomical Region Laterality Modality Breast Bilateral Mammography Narrative 08/16/2024 2:51 PM TRACK WALKER Mammogram Technique: Bilateral Digital Breast Tomosynthesis, Bilateral C-view 2D Screening mammogram. Views obtained: bilateral craniocaudal and bilateral mediolateral oblique. Computer Aided Detection was performed. Mammogram Findings: The present examination has been compared to prior imaging studies performed at [facility] on 05/15/2021, 07/18/2022 and 08/12/2023. [...] compared to prior imaging studies performed at [facility] on 05/15/2021, 07/18/2022 and 08/12/2023. [...] Most Recently Relevant to Health Maintenance Insurance [employer] OOS BLUE [employer] CHOICE OOS BLUE ACC CHOICE OOS Care Teams Processor Inspector Relationship Specialty Start Date End Date Maggie Klein MD [address] [facility] [address] [place] [id number] PCP - General Gynecology 06/23/24
--- OUTSIDE RECORDS SUMMARY | 2024-12-30 12:37 | XMS_ITS | Referral Summary ---
Author Organization [place] [id number] [facility] Address [facility] [place] [address] Care Team Providers Care Data Modeling Architect Name Role Phone Maggie Klein MD Primary Care Provider + Active Problems Problem Noted Date Diagnosed Date Deep vein thrombosis (DVT) 2015 residential current use of anticoagulant therapy 0 2015 Heterozygous factor V Leiden mutation 2015 Social History Tobacco Use Types Packs/Day Years Used Date Smoking Tobacco: Every Day Comments Unknown Sex and Gender Information Value Date Recorded Sex Assigned at Not on file Legal Sex Female 1:55 AM RECOVERY ASSISTANT Gender Identity Not on file Sexual Orientation [...] Read Routine (OP Routine) 08/16/2024 8:27 AM RECOVERY ASSISTANT Screening mammogram, encounter for from Last 3 Months or Most Recently Relevant to Health Maintenance Results * Screening Mammogram Bilateral W Arsenio (08/16/2024 8:27 AM RECOVERY ASSISTANT) Anatomical Region Laterality Modality Breast Bilateral Mammography Narrative 08/16/2024 2:51 PM RECOVERY ASSISTANT Mammogram Technique: Bilateral Digital Breast Tomosynthesis, Bilateral C-view 2D Screening mammogram. Views obtained: bilateral craniocaudal and bilateral mediolateral oblique. Computer Aided Detection was performed. Mammogram Findings: The present examination has been compared to prior imaging studies performed at [facility] on 05/15/2021, 07/18/2022 and 08/12/2023. There [...] compared to prior imaging studies performed at [facility] on 05/15/2021, 07/18/2022 and 08/12/2023. There [...] Relevant to Health Maintenance Insurance [employer] O[employer] CHOICE OOS [employer] CHOICE OOS Care Teams Data Modeling Architect Relationship Specialty Start Date End Date Maggie Klein MD [address] [address] PCP - General Gynecology 06/23/24
--- NOTE | 2024-12-30 12:56 | ECHO_ITS ---
Patient Info Name: Natasha Gómez Age: 54 years : 1970 Gender: Female Ht: 66 in Wt: 230 lbs BSA: 2.25 m2 HR: 62 bpm BP: 154 / 90 mmHg Technical Quality: Good Exam Date: 12/30/2024 1:02 PM Patient Status: O Admit Date: 12/30/2024 Exam Type: CA echo doppler color flow Complete two-dimensional, color flow and Doppler transthoracic echocardiogram is performed. Director Of Clinical Education: Santa Bedoya Attending Provider: Jennie Lopez Summary 1. Complete two-dimensional, color flow and Doppler transthoracic echocardiogram is performed. 2. Left ventricular chamber dimension is normal. 3. Left ventricular systolic function is normal, estimated at 65-70. 4. The left ventricular diastolic function is abnormal. 5. E/e' 10 is mildly elevated. 6. Left atrial chamber dimension is mildly enlarged. 7. There is trace tricuspid valve regurgitation. 8. No pulmonary hypertension, estimated pulmonary arterial systolic pressure is 29 mmHg. Left Ventricle E/e' 10 is mildly elevated. Left ventricular chamber dimension is normal. Left ventricular systolic function is normal, estimated at 65-70. The left ventricular diastolic function is abnormal. Right Ventricle Right ventricular chamber dimension is normal. Right ventricular systolic function is normal and with normal TAPSE 2.5 cm. Left Atria Left atrial chamber dimension is mildly enlarged. Right Atria Right atrial chamber dimension is normal. Aortic Valve The aortic valve is trileaflet. There is no aortic valve stenosis. There is no aortic valve regurgitation. Pulmonic Valve There is no pulmonic regurgitation. Mitral Valve There is no mitral valve stenosis. There is no mitral valve regurgitation. Tricuspid Valve There is trace tricuspid valve regurgitation. No pulmonary hypertension, estimated pulmonary arterial systolic pressure is 29 mmHg. Pericardium/Pleural There is no pericardial effusion. Inferior Vena Cava Normal inferior vena cava with >50% collapse upon inspiration consistent with normal right atrial pressure, 5 mmHg. Aorta The aortic root size at the sinus of Valsalva is normal. Left Ventricular Outflow Tract Name Value Normal LVOT 2D LVOT Diameter 1.9 cm LVOT Doppler LVOT Peak Velocity 114 cm/s LVOT Peak Gradient 5 mmHg LVOT Mean Gradient 3 mmHg LVOT VTI 25 cm LVOT VTI/AV VTI Ratio 0.8 LVOT Stroke Volume 72 ml LVOT CO 12.9 l/min LVOT CI 5.7 l/min/m2 Pulmonic Valve Name Value Normal PV Doppler PV Peak Velocity 100 cm/s PV Peak Gradient 4 mmHg Mitral Valve Name Value Normal MV Diastolic Function MV E Peak Velocity 97 cm/s MV A Peak Velocity 92 cm/s MV E/A 1.0 MV Decel Time (PW) 288 ms MV Annular TDI MV E/e' (Septal) 10.4 MV E/e' (Lateral) 10.4 MV E/e' (Average) 10.4 Tricuspid Valve Name Value Normal TV Regurgitation Doppler TR Peak Velocity 244 cm/s TR Peak Gradient 24 mmHg Estimated PAP/RSVP RA Pressure 5 mmHg <=5 PA Systolic Pressure 29 mmHg <36 RV Systolic Pressure 29 mmHg <36 TV Annular TDI TV Lateral Patrica s' Velocity 14.4 cm/s >=9.5 Aorta Name Value Normal Ascending Aorta Ao Root Diameter (MM) 2.9 cm Ao Root Diam Index (MM) 1.3 cm/m2 Aortic Valve Name Value Normal AV Doppler AV Peak Velocity 146 cm/s AV Peak Gradient 8 mmHg AV Mean Gradient 5 mmHg AV VTI 32 cm AV Area (Cont Eq VTI) 2.3 cm2 >=3.0 AV Area (Cont Eq Saeed) 2.2 cm2 AV DI (Saeed) 0.78 AV Regurgitation 2D LVOT Area 2.9 cm2 Ventricles Name Value Normal LV Dimensions 2D/MM IVS Diastolic Thickness (2D) 1.1 cm 0.6-1.0 LVID Diastole (2D) 4.1 cm 3.8-5.2 LVIW Diastolic Thickness (2D) 1.1 cm 0.6-0.9 LVID Systole (2D) 2.1 cm 2.2-3.5 LVOT Diameter 1.9 cm LV Mass (2D Cubed) 142.98 g 67.00-162.00 LV Mass Index (2D Cubed) 64 g/m2 43-95 Relative Wall Thickness (2D) 0.53 <=0.42 LV Fractional Shortening/Ejection Fraction 2D/MM LV Fractional Shortening (2D) 48 % 27-45 LV EF (2D Teichholz) 80 % LV Diastolic Volume (4C MOD) 82 ml LV EF (4C MOD) 72 % LV Diastolic Volume (2C MOD) 105 ml LV EF (2C MOD) 76 % LV Diastolic Volume (BP MOD) 94 ml 46-106 LV Diastolic Volume Index (BP MOD) 42 ml/m2 29-61 LV Systolic Volume (BP MOD) 24 ml 14-42 LV Systolic Volume Index (BP MOD) 11 ml/m2 8-24 LV EF (BP MOD) 74 % 54-74 LV Diastolic Length (4C) 8.3 cm LV Systolic Length (4C) 6.2 cm LV Stroke Volume (4C MOD) 59 ml RV Dimensions 2D/MM RVID Diastole (2D) 4.1 cm 2.1-3.5 Atria Name Value Normal LA Dimensions LA Dimension (MM) 3.4 cm 2.7-3.8 LA Volume (4C A-L) 58 ml LA Volume (BP A-L) 54 ml RA Dimensions RA Systolic Major [place] Length (4C) 4.8 cm 2.2-2.8 RA Area (4C) 13.5 cm2 <=18.0 Report Signatures
== END 2024-12-30 12:33 | disposition home or self-care (01) ==
PROVIDERS: PCP Nurse Practitioner Family; Visit Provider Nurse Practitioner Family
DX: R93.1 Abnormal findings on diagnostic imaging of heart and coronary circulation (principal); R06.02 Shortness of breath; M79.89 Other specified soft tissue disorders
CPT/HCPCS: 93306